=== PATIENT | male | born 1975 | race Caucasian/White ===

== ENCOUNTER → 2021-03-21 10:20 | Outpatient (BNVA) | payer SELFPAY | PROVIDERS: Family Provider Nurse Practitioner; PCP Nurse Practitioner Family; Visit Provider Nurse Practitioner Family | DX: K76.0 Fatty (change of) liver, not elsewhere classified (principal); R14.0 Abdominal distension (gaseous); R00.2 Palpitations; R29.818 Other symptoms and signs involving the nervous system; R51.9 Headache, unspecified | CPT/HCPCS: 80053; 80061; 82105; 83036; 84443; 85610; 85730 ==

== ENCOUNTER 2021-03-30 10:19 | Outpatient (CLI) | payer SELFPAY ==
--- NOTE | 2021-03-30 10:15 | US_ITS ---
WS: [id number] ULTRASOUND ABDOMEN CLINICAL INFORMATION: Distention/tenderness COMPARISON: None. FINDINGS: Liver Size: Normal. Craniocaudal length: 14.8 cm. Echogenicity: Coarse Surface nodularity: None. Mass (size and location): None. Bile ducts Intrahepatic ducts: Normal. Common bile duct diameter: 0.4 cm. Gallbladder Normal. Gallstones: None. Gallbladder sludge: None. Gallbladder wall thickening: None. Pericholecystic fluid: None. Sonographic Velasquez sign: Absent. Pancreas Normal as visualized. Spleen Splenomegaly: Mild Craniocaudal length: 12.6 cm. Right kidney: Normal. Hydronephrosis: None. Size: 11.1 cm x 5.0 cm x 4.6 cm Left kidney: Normal. Hydronephrosis: None. Size: 10.9 cm x 5.1 cm x 5.0 cm. Abdominal aorta and IVC Visualized portions are normal. Ascites: None. US/US abdomen complete* [id number] IMPRESSION: 1. Diffuse fatty infiltration of the liver. 2. Normal gallbladder. No cholelithiasis. Normal common bile duct. 3. No hydronephrosis in either kidney. 4. Mild splenomegaly.
== END 2021-03-30 10:20 | disposition home or self-care (01) ==
LOC: RAD 10:21
PROVIDERS: PCP Nurse Practitioner Family; Visit Provider Nurse Practitioner Family
DX: R14.0 Abdominal distension (gaseous) (principal); R10.819 Abdominal tenderness, unspecified site; K76.0 Fatty (change of) liver, not elsewhere classified; R16.1 Splenomegaly, not elsewhere classified
CPT/HCPCS: 76700

== ENCOUNTER → 2021-05-04 13:36 | Outpatient (BNVA) | payer SELFPAY | PROVIDERS: PCP Nurse Practitioner Family; Visit Provider Nurse Practitioner Family | DX: K76.0 Fatty (change of) liver, not elsewhere classified (principal); Z13.31 Encounter for screening for depression | CPT/HCPCS: 80053 ==

== ENCOUNTER → 2021-09-20 13:50 | Outpatient (BNVA) | payer SELFPAY | PROVIDERS: PCP Nurse Practitioner Family; Visit Provider Nurse Practitioner Family | DX: R74.8 Abnormal levels of other serum enzymes (principal); R73.03 Prediabetes; Z13.1 Encounter for screening for diabetes mellitus; K52.9 Noninfective gastroenteritis and colitis, unspecified; K27.9 Peptic ulcer, site unspecified, unspecified as acute or chronic, without hemorrhage or perforation | CPT/HCPCS: 80053; 83036; 87338; 87506 ==

== ENCOUNTER 2021-09-22 06:51 | Outpatient (CLI) | payer SELFPAY ==
--- NOTE | 2021-09-22 07:45 | CT_ITS ---
WS: [id number] CT ABDOMEN AND PELVIS WITH CONTRAST HISTORY: C43.9 - Malignant melanoma of skin, unspecified TECHNIQUE: Imaging performed of the abdomen and pelvis with IV contrast. Single phase imaging of the abdomen. Coronal and sagittal reformats are submitted. All CT scans at [facility] use at [address] one of these dose optimization techniques: automated exposure control; mA and/or kV adjustment per patient size (includes targeted exams where dose is matched to clinical indication); or iterative re construction. IV CONTRAST: Omnipaque 350; 95 mL IV. Oral contrast: Yes. DLP: 1375.33 mGy.cm COMPARISON: 05/29/2016 Lower thorax: Lung bases are clear. Heart is normal size. Small hiatal hernia. Liver/biliary system: Normal size with no intrahepatic dilatation. Gallbladder: Normal. No gallstones or wall thickening. No pericholecystic fluid. Pancreas: Normal size pancreas and pancreatic duct. No adjacent inflammation. Spleen: Normal size spleen. No mass or infarct. Adrenal glands: Normal. Right kidney: Normal. Left kidney: Normal. Aorta: Normal. Lymphadenopathy: None. Free fluid: None. GI tract: Nondistended stomach. Towards the pylorus and proximal duodenum there is increased circumfe rential soft tissue and small focus of air within the wall. Suspect this may be a small duodenal ulce ration. No obstruction is evident. No small bowel obstruction. Very mild diffuse fecal retention. The appendix is normal. There are a few scattered diverticula. No evidence for acute diverticulitis. Abdominal wall: Fat containing umbilical hernia. There is a tiny 4 mm nodule in the RIGHT abdominal w all subcutaneous fat. This may be an injection site. Very nonspecific. A similar smaller finding note d on the LEFT. Pelvis: No free fluid or adenopathy within the pelvis. Well-distended urinary bladder. Bones: No osteoblastic or osteolytic bone disease. CT/CT abdomen pelvis w con* [id number] IMPRESSION: 1. Mild soft tissue thickening in the region of the pylorus and proximal duode num. Tiny focus of air in the wall of the duodenum. Suspicious for duodenal ulc er. Recommend short-term follow-up. Endoscopy may be necessary. 2. No ascites or mesenteric deposits. 3. No adenopathy.
[2021-09-22] MEDS: iohexol 350 mg/mL 100 mL Btl IV (08:28)
== END 2021-09-22 06:52 | disposition home or self-care (01) ==
PROVIDERS: PCP Nurse Practitioner Family; Visit Provider Nurse Practitioner Family
DX: C43.9 Malignant melanoma of skin, unspecified (principal)
CPT/HCPCS: 74177

== ENCOUNTER 2022-10-31 19:53 | Emergency (ER) | payer MEDICAID, SELFPAY ==
[2022-10-31 20:02] VITALS: BP 151/76; PULSE 49; RESP 18; TEMP 36.9; O2SAT 98; BMI 30.4
--- NOTE | 2022-10-31 20:06 | XRR_ITS ---
PROCEDURE INFORMATION: Exam: XR Chest Exam date and time: 10/31/2022 8:12 PM Age: 46 years old Clinical indication: Pain; Chest pressure; Additional info: Chest pain TECHNIQUE: Imaging protocol: Radiologic exam of the chest. Views: 1 view. COMPARISON: CT abdomen pelvis w con* [id number] 09/22/2021 8:21 AM FINDINGS: Lungs: Unremarkable. No consolidation. Pleural spaces: Unremarkable. No pleural effusion. No pneumothorax. Heart/Mediastinum: Unremarkable. No cardiomegaly. Bones/joints: Unremarkable. XR/XR chest 1V portable [id number] IMPRESSION: No acute findings.
--- NOTE | 2022-10-31 20:08 | ECG_ITS ---
[facility] Test Date: 2022-10-31 Pat Name: Rao Salmon Department: Room: Gender: Male Claim Inspector: : 1975 Requested By: Burt Lamas Order Number: [id number] Courtney MD: Vlad Ann M.D. Measurements Intervals [place] Rate: 51 P: 21 [place]: 172 QRS: -40 QRSD: 103 T: 39 QT: 405 QTc: 376 Interpretive Statements SINUS BRADYCARDIA LEFT AXIS DEVIATION [QRS AXIS < -30] No previous ECG available for comparison Electronically Signed On 11-01-2022 7:59:59 CDT by Vlad Ann M.D. [id number] f
--- NOTE | 2022-10-31 20:08 | ECG_ITS ---
[facility] Test Date: 2022-10-31 Pat Name: Rao Salmon Department: Room: Gender: Male Financial Health Counselor: : 1975 Requested By: Burt Lamas Order Number: [id number] Courtney MD: Vlad Ann M.D. Measurements Intervals [place] Rate: 51 P: 21 [place]: 172 QRS: -40 QRSD: 103 T: 39 QT: 405 QTc: 376 Interpretive Statements SINUS BRADYCARDIA LEFT AXIS DEVIATION [QRS AXIS < -30] No previous ECG available for comparison Electronically Signed On 11-01-2022 7:58:27 CDT by Vlad Ann M.D. [id number] f
[2022-10-31 20:34] LABS: Basophils # 0.1 10^3/uL (0.0-0.1); Basophils % 0.9 %; Eosinophils # 0.1 10^3/uL (0.0-0.8); Hematocrit 43.7 % (42.0-52.0); Hemoglobin 14.5 g/dL (11.7-16.6); Lymphocytes # 1.8 10^3/uL (0.8-4.8); Lymphocytes % 17.7 %; Mean Corpuscular HGB Conc 33.2 g/dL (30.0-36.0); Mean Corpuscular Hemoglobin 29.1 pg (28.0-34.0); Mean Corpuscular Volume 87.6 fl (80-94); Mean Platelet Volume 10.6 fL (7.4-10.4); Monocytes # 0.5 10^3/uL (0.2-0.9); Neutrophils # 7.62 10^3/uL (1.8-7.7); Neutrophils % 75.1 %; Nucleated Red Blood Cells % 0 %; Platelet Count 225 10^3/cmm (130-400); Red Blood Count 4.99 10^6/uL (4.1-5.3); Red Cell Distribution Width 12.2 % (12.1-15.1); White Blood Count 10.2 10^3/uL (4.0-10.0)
--- NOTE | 2022-10-31 20:48 | ED_ITS ---
HPI - Chest Pain General: Chief Complaint: Chest Pain Stated Complaint: CP Time Seen by Provider: 10/31/22 20:06 History of Present Illness: Patient presents to the ER with intermittent chest pain for about a month. Chest pain today started about an hour ago hit his midsternal to his left chest sometimes radiates down his left arm. Patient says he has had a cardiac stress test through the [employer] [facility] system in [place] but he does not know the results of it. Patient also states he has not been referred to route agent in the [employer] system as he has never received a phone call from them back. Looking through the patient's chart he had a Holter monitor done approximately 2021 that did show bradycardia down to the approximately 45 beats a minute as well as tachycardia up to 150 beats a minute. Review of Systems General: Reports: 10 or more systems reviewed and unremarkable except in HPI and below PFSH ED PFSH: Medical History Fatty liver Melanoma Metastatic malignant melanoma Family History Other Diabetes Physical Exam Const: COMMON NORMALS: no acute distress, average body habitus, patient oriented x3, no limitations, healthy appearing, alert and well nourished HENMT: COMMON NORMALS: normocephalic, atraumatic, hearing grossly normal bilaterally, external ears normal, Normal external nose present and moist oral mucous membranes HEAD & SCALP: normocephalic and atraumatic NOSE: Normal external nose present EXTERNAL EAR: Yes external ears normal Neck/C-Spine: COMMON NORMALS: full ROM, no lymphadenopathy, supple, no meningeal signs, no JVD and Thyroid normal THYROID: Thyroid normal Chest: COMMONS NORMALS: normal inspection of the chest and normal palpation of entire chest wall Resp: COMMON NORMALS: normal respiratory effort, No retractions, No use of accessory muscles and clear to auscultation bilaterally AUSCULTATION: clear to auscultation bilaterally Cardio: COMMON NORMALS: no JVD, regular rate (Bradycardia), regular rhythm, S1 normal heart sound present, S2 normal heart sound present, No gallops present (Cardio), No clicks present (Cardio) and No murmurs present (Cardio) RATE: regular rate (Bradycardia) RHYTHM: regular rhythm HEART SOUNDS: S1 normal heart sound present and S2 normal heart sound present GI: COMMON NORMALS: Normal to inspection, nondistended, normoactive bowel sounds present, Soft to palpation and No hepatosplenomegaly present PALPATION: Yes Soft to palpation and Yes No hepatosplenomegaly present Neuro: COMMON NORMALS: patient oriented x3 SENSORIUM/ORIENTATION: Yes alert MENINGEAL SIGNS: Yes no meningeal signs Course Vital Signs: Vital signs: Vital Signs Temperature 98.4 F 10/31/22 20:02 Pulse Rate 52 L 10/31/22 23:00 Respiratory Rate 18 10/31/22 22:00 Blood Pressure 136/83 10/31/22 23:00 Pulse Oximetry 97 10/31/22 23:00 Oxygen Delivery Me thod Room Air 10/31/22 23:00 MDM - Chest Pain Medical Decision Making Patient presents to the ER with atypical chest pain intermittently off and on for the last 1 month. During this time patient had a cardiac stress test that he does not know the results of. Patient was worked up in normal cardiac fashion all of which was essentially benign patient did not have chronic bradycardia with occasional dips down to the high 40s. This was discussed with the patient patient will be referred to cardiology through our system. Patient should follow-up with his PCP in the next week. Differential Diagnosis Unlikely acute massive pulmonary embolism, acute respiratory failure, acute myocardial infarction, cardiac arrest or sudden cardiac Medical Records I reviewed the patient's medical records. Lab Data I reviewed the patient's lab results. 10/31/22 20:24 10/31/22 20:24 Radiology Impressions Chest X-Ray 10/31/22 20:06 IMPRESSION: No acute findings. Laboratory Results WBC 10.2 10^3/uL (4.0-10.0) H 10/31/22 20:24 RBC 4.99 10^6/uL (4.1-5.3) 10/31/22 20:24 Hgb 14.5 g/dL (11.7-16.6) 10/31/22 20:24 Hct 43.7 % (42.0-52.0) 10/31/22 20:24 MCV 87.6 fl (80-94) 10/31/22 20:24 MCH 29.1 pg (28.0-34.0) 10/31/22 20:24 MCHC 33.2 g/dL (30.0-36.0) 10/31/22 20: RDW 12.2 % (12.1-15.1) 10/31/22 20: Plt Count 225 10^3/cmm (130-400) 10/31/22 20:24 MPV 10.6 fL (7.4-10.4) H 10/31/22 20: Neut % (Auto) 75.1 % 10/31/22: Lymph % (Auto) 17.7 % 10/31/22: Blaine % (Auto) 5.0 % 10/31/22: Eos % (Auto) 1.0 % 10/31/22 20: Baso % (Auto) 0.9 % 10/31/22: Neut # (Auto) 7.62 10^3/uL (1.8-7.7) 10/31/22: Lymph # (Auto) 1.8 10^3/uL (0.8-4.8) 10/31/22: Blaine # (Auto) 0.5 10^3/uL (0.2-0.9) 10/31/22 20: Eos # (Auto) 0.1 10^3/uL (0.0-0.8) 10/31/22: Baso # (Auto) 0.1 10^3/uL (0.0-0.1) 10/31/22: Nucleated RBC % (auto) 0 % 10/31/22: Nucleated RBCs # 0.0 /100WBC 10/31/22: PT 13.50 SECONDS (12.1-14.9) 10/31/22 20:24 INR 1.00 (0.8-1.2) 10/31/22 20:24 Sodium 141 mmol/L (136-145) 10/31/22 20:24 Potassium 4.1 mmol/L (3.5-5.1) 10/31/22 20: Chloride 106 mmol/L (98-107) 10/31/22 20:24 Carbon Dioxide 25 mmol/L (22-29) 10/31/22 20: Anion Gap 14.1 (5-19) 10/31/22 20:24 BUN 14 mg/dL (6-20) 10/31/22 20:24 Creatinine 1.1 mg/dL (0.7-1.2) 10/31/22 20:24 GFR Calculation 71.8 mL/min (90-130) L 10/31/22 20:24 Glucose 104 mg/dL (65-115) 10/31/22 20:24 Calculated Osmolality 293 mOsm/kg (285-295) 10/31/22 20:24 Calcium 9.3 mg/dL (8.5-10.5) 10/31/22 20:24 Total Bilirubin 0.9 mg/dL (0.15-1.2) 10/31/22 20:24 AST 22 U/L (0-40) 10/31/22 20:24 ALT 44 U/L (0-41) H 10/31/22 20:24 Alkaline Phosphatase 94 U/L (40-130) 10/31/22 20:24 Troponin T Baseline 8 ng/L (0-15) 10/31/22 20:24 Troponin T 120 Minute 10.55 ng/L (0-15) 10/31/22 22:26 Delta Troponin T 2.55 ABS# (0-10) 10/31/22 22:26 Total Protein 7.1 g/dL (6.6-8.7) 10/31/22 20:24 Albumin 4.3 g/dL (3.5-5.2) 10/31/22 20:24 Globulin 2.8 g/dL (1.3-4.6) 10/31/22 20:24 EKG Data EKG 1: I personally reviewed and interpreted this EKG as follows: EKG interpretation date: 10/31/22 EKG interpretation time: 20:08 Prior EKG tracings: not available for review Interpretation: Ventricular rate of 51 bpm, MN interval 172, QRS duration 103, QTc of 383, sinus bradycardia, left axis deviation, no ST-T wave changes Discharge Plan Discharge Patient Disposition: Home Clinical Impression: Atypical chest pain, Bradycardia Condition: Stable Prescriptions: No Action pantoprazole [Protonix] 40 mg tablet,delayed release (DR/EC) 40 mg PO DAILY Qty: 90 0RF Rx Instructions: 340 B buspirone 15 mg tablet 15 mg PO .HS Qty: 90 3RF trazodone 100 mg tablet 100 mg PO .HS Qty: 90 3RF citalopram 40 mg tablet 40 mg PO DAILY Qty: 90 3RF Discharge Orders: Discharge ED (Routine); Ordered 10/31/22 Ordered By: Burt Lamas Referrals: Sheila Meyers FNP [Primary Care Provider] - 1 week Patient Instructions: Chest Pain (ED), Bradycardia (ED) Activity Restrictions/Additional Instructions: He had been referred to case management. They will refer you to cardiology. If they have not consulted you by Saturday please feel free to give them a call. Coding Level of Care Code ED Tubing Oiler for Saroj Gorman
[2022-10-31 21:00] VITALS: BP 167/93; PULSE 50; RESP 18; O2SAT 98
[2022-10-31 21:00] LABS: Troponin(5th) Baseline 8 ng/L (0-15)
[2022-10-31 21:06] LABS: Alanine Aminotransferase 44 U/L (0-41); Albumin Level 4.3 g/dL (3.5-5.2); Alkaline Phosphatase 94 U/L (40-130); Anion Gap 14.1 (5-19); Aspartate Amino Transferase 22 U/L (0-40); Blood Urea Nitrogen 14 mg/dL (6-20); Calcium 9.3 mg/dL (8.5-10.5); Carbon Dioxide 25 mmol/L (22-29); Chloride 106 mmol/L (98-107); Globulin 2.8 g/dL (1.3-4.6); Glomerular Filtration Rate 71.8 mL/min (90-130); Glucose 104 mg/dL (65-115); Osmolality Calculated 293 mOsm/kg (285-295); Potassium 4.1 mmol/L (3.5-5.1); Sodium 141 mmol/L (136-145); Total Bilirubin 0.9 mg/dL (0.15-1.2); Total Protein 7.1 g/dL (6.6-8.7)
[2022-10-31 22:00] VITALS: BP 148/72; PULSE 52; RESP 18; O2SAT 98
[2022-10-31 22:58] LABS: Troponin 5 2HR 10.55 ng/L (0-15); Troponin 5 2HR Delta 2.55 ABS# (0-10)
[2022-10-31 23:00] VITALS: BP 136/83; PULSE 52; O2SAT 97
[2022-10-31 23:44] VITALS: BP 122/69; PULSE 54
--- NOTE | 2022-11-01 08:38 | DCPLANNER ---
Addendum entered by Amy Mantilla 11/16/22 10:59: Patient did attend this appointment with heart care Addendum entered by Amy Mantilla 11/06/22 11:45: Patient has a follow up appointment scheduled for Sunday, November 13, 2022 at 10:[address] Delacruz at [facility]. Original Note: manager of change had message to schedule a follow up appointment for patient with cardiology. manager of change sent patients information to the front office staff at [facility]. Patients information will be printed and reviewed. Clinic will call patient with appointment information.
== END 2022-10-31 23:46 | disposition home or self-care (01) ==
PROVIDERS: Emergency Provider Emergency Medicine; PCP Nurse Practitioner Family
DX: R07.89 Other chest pain (principal); R00.1 Bradycardia, unspecified
CPT/HCPCS: 36415; 71045; 80053; 84484; 85025; 85610; 93005; 99285

== ENCOUNTER → 2022-11-01 11:06 | Outpatient (BNVA) | payer MEDICAID, SELFPAY | PROVIDERS: PCP Nurse Practitioner Family; Visit Provider Family Medicine | DX: F41.1 Generalized anxiety disorder (principal); F41.0 Panic disorder [episodic paroxysmal anxiety]; W57.XXXA Bitten or stung by nonvenomous insect and other nonvenomous arthropods, initial encounter; R00.1 Bradycardia, unspecified; R07.89 Other chest pain; R07.9 Chest pain, unspecified; Z12.5 Encounter for screening for malignant neoplasm of prostate | CPT/HCPCS: 80053; 80061; 84443; 85025; 86003; 86008; 86618; 86666; 86677; 86757; G0103 ==

== ENCOUNTER 2022-12-03 14:33 | Outpatient (CLI) | payer MEDICAID, SELFPAY ==
--- NOTE | 2022-12-03 15:15 | USCV_ITS ---
Rao Salmon Age: 47 Gender: M : 1975 Exam Date: 12/03/2022 14:46 Ordering Phys: Andrea Delacruz MD ([email or web address]) Technologist: Yuliana Calvert Exam Location: [facility] Indication: CP, palpitations BP: 112 / 70 HR: 73 Rhythm: Sinus Technical Quality: Good MEASUREMENTS (Male / Female) Normal Values 2D ECHO LV Diastolic Diameter PLAX 4.8 cm 4.2 - 5.9 / 3.9 - 5.3 cm LV Systolic Diameter PLAX 2.8 cm IVS Diastolic Thickness 1.3 cm 0.6 - 1.0 / 0.6 - 0.9 cm IVS Systolic Thickness 1.8 cm LVPW Diastolic Thickness 0.9 cm 0.6 - 1.0 / 0.6 - 0.9 cm LVPW Systolic Thickness 1.9 cm LVOT Diameter 2.0 cm LV Ejection Fraction 2D Teich 73.1 % LV Ejection Fraction MOD 2C 66.2 % LV Ejection Fraction 2C AL 67.3 % LA Diameter 3.0 cm LA Width 3.2 cm LA Height 4.1 cm RA Width 3.3 cm RA Height 5.1 cm Aorta at Sinotubular Diameter 2.9 cm IVC Diameter 1.4 cm M-MODE Aortic Annulus Diameter 2.7 cm LA Ao Ratio MM 1.2 MV E Point Septal Separation 0.3 cm DOPPLER AV Peak Velocity 154.0 cm/s LVOT Peak Velocity 129.0 cm/s AV Area Cont Eq vti 2.5 cm squared AV Area Cont Eq pk 2.7 cm squared MV Area PHT 3.5 cm squared Mitral E to A Ratio 1.0 MV E' Velocity 42.5 cm/s Mitral E to MV E' Ratio 8.0 Mitral E to LV E' Lateral Ratio 6.6 Mitral E to LV E' Septal Ratio 10.4 TR Peak Velocity 196.8 cm/s TR Peak Gradient 15.5 mmHg Right Atrial Pressure 5.0 mmHg Pulmonary Artery Systolic Pressu 20.5 mmHg PV Peak Velocity 109.0 cm/s RV Acceleration Time 0.1 s RV Ejection Time 0.3 s RV AcT/ET 0.5 FINDINGS Left Ventricle Normal left ventricular size and systolic function, EF 67 %. Mild left ventricular hypertrophy. No regional wall motion abnormalities. Right Ventricle The right ventricle is normal in size and function. Right Atrium The right atrium is normal in size. Left Atrium The left atrium is normal in size. Mitral Valve Thickened mitral valve. Mild mitral valve regurgitation. Aortic Valve No gross abnormalities noted Tricuspid Valve Mild tricuspid valve regurgitation. Pulmonic Valve No gross abnormalities noted Pericardium Normal pericardium without effusion. Aorta Normal aortic annulus size. IVC Normal inferior vena cava. CONCLUSIONS Normal left ventricular size and systolic function, EF 67 %. Mild left ventricular hypertrophy. No regional wall motion abnormalities. Thickened mitral valve. Mild mitral valve regurgitation. Mild tricuspid valve regurgitation. There is no pericardial effusion. There are no intracardiac masses. No similar previous studies are available for comparison Dr Andrea Delacruz MD FACC (Electronically Signed) Final Date: 03 December 2022 20:20 S
== END 2022-12-03 14:34 | disposition home or self-care (01) ==
PROVIDERS: PCP Family Medicine; Visit Provider Internal Medicine Cardiovascular Disease
DX: R00.0 Tachycardia, unspecified (principal); R06.09 Other forms of dyspnea; R07.9 Chest pain, unspecified; I34.0 Nonrheumatic mitral (valve) insufficiency; I07.1 Rheumatic tricuspid insufficiency
CPT/HCPCS: 93306

== ENCOUNTER → 2023-03-25 09:35 | Outpatient (BNVA) | payer MEDICAID, SELFPAY | PROVIDERS: PCP Family Medicine; Visit Provider Family Medicine | DX: R74.8 Abnormal levels of other serum enzymes (principal); K27.9 Peptic ulcer, site unspecified, unspecified as acute or chronic, without hemorrhage or perforation; K26.9 Duodenal ulcer, unspecified as acute or chronic, without hemorrhage or perforation; K92.1 Melena | CPT/HCPCS: 80053; 82150; 82247; 82248; 82977; 83690; 85025 ==

== ENCOUNTER 2023-04-05 12:56 | Outpatient (CLI) | payer MEDICAID, SELFPAY ==
--- NOTE | 2023-04-05 13:45 | US_ITS ---
WS: [id number] Complete ABDOMINAL ULTRASOUND HISTORY: Abdominal pain, elevated pancreatic enzymes. COMPARISON: 03/30/2021 Liver: 14.8 cm in length. Normal size liver and echogenicity. No bile duct dilatation or mass. Portal Vein: Normal hepatopetal flow with monophasic waveform. Gallbladder: Normally distended gallbladder with no stones or wall thickening. CBD: 0.2 cm Pancreas: Only a small portion of the body of the pancreas is seen. Otherwise obscured by bowel gas. Right kidney: 10.3 cm x 4.8 x 4.5 cm. Cortex: 1.2 cm. Normal size and echogenicity. No hydronephrosis or mass. Left kidney: 10.8 cm x 3.5 cm x 4.9 cm. Cortex: 1.3 cm. Normal size and echogenicity. No hydronephrosis or mass. Spleen: 12.5 cm in length. Normal. Aorta and IVC: Unremarkable abdominal aorta and IVC. Impression: 1. Normal gallbladder. 2. Normal liver. 3. Pancreas poorly visualized due to bowel gas.
== END 2023-04-05 12:57 | disposition home or self-care (01) ==
LOC: RAD 12:56
PROVIDERS: PCP Family Medicine; Visit Provider Family Medicine
DX: R10.84 Generalized abdominal pain (principal); R74.8 Abnormal levels of other serum enzymes; K92.1 Melena; Z80.0 Family history of malignant neoplasm of digestive organs
CPT/HCPCS: 76700

== ENCOUNTER 2023-04-21 09:32 | Emergency (ER) | payer MEDICAID, SELFPAY ==
[2023-04-21 09:38] VITALS: BP 139/77; PULSE 59; RESP 16; TEMP 36.4; O2SAT 99; BMI 27.1
[2023-04-21 09:47] LABS: Basophils # 0.1 10^3/uL (0.0-0.1); Basophils % 1.1 %; Eosinophils # 0.4 10^3/uL (0.0-0.8); Eosinophils % 7.1 %; Hematocrit 44.4 % (37-53); Mean Corpuscular HGB Conc 33.8 g/dL (30-55); Mean Corpuscular Hemoglobin 29.4 pg (27-33); Mean Corpuscular Volume 87.1 fl (82-101); Mean Platelet Volume 10.2 fL (7.4-10.4); Monocytes # 0.4 10^3/uL (0.2-0.9); Monocytes % 8.2 %; Neutrophils # 2.32 10^3/uL (1.8-7.7); Neutrophils % 44.4 %; Nucleated Red Blood Cells % 0 %; Platelet Count 232 10^3/cmm (157-399); Red Cell Distribution Width 12.2 % (12.1-15.1); White Blood Count 5.23 10^3/uL (3.29-11.43)
[2023-04-21 10:05] LABS: Alanine Aminotransferase 50 U/L (0-41); Albumin Level 4.3 g/dL (3.5-5.2); Alkaline Phosphatase 85 U/L (40-130); Anion Gap 13.9 (5-19); Aspartate Amino Transferase 28 U/L (0-40); Blood Urea Nitrogen 14 mg/dL (6-20); Calcium 9.6 mg/dL (8.5-10.5); Carbon Dioxide 25 mmol/L (22-29); Chloride 107 mmol/L (98-107); Creatinine Clr Calc Pharmacy 96.2366; Globulin 2.9 g/dL (1.3-4.6); Glomerular Filtration Rate 71.4 mL/min (90-130); Glucose 107 mg/dL (65-115); Lipase 89 U/L (13-60); Osmolality Calculated 293 mOsm/kg (285-295); Potassium 4.9 mmol/L (3.5-5.1); Sodium 141 mmol/L (136-145); Total Bilirubin 1.2 mg/dL (0.15-1.2); Total Protein 7.2 g/dL (6.6-8.7)
--- NOTE | 2023-04-21 10:35 | CTR_ITS ---
PROCEDURE INFORMATION: Exam: CT Abdomen And Pelvis With Contrast Exam date and time: 04/21/2023 10:55 AM Age: 47 years old Clinical indication: Abdominal pain; Epigastric; Additional info: Epigastric pain TECHNIQUE: Imaging protocol: Computed tomography of the abdomen and pelvis with contrast. Radiation optimization: All CT scans at this facility use at least one of these dose optimization techniques: automated exposure control; mA and/or kV adjustment per patient size (includes targeted exams where dose is matched to clinical indication); or iterative reconstruction. Contrast material: OMNI 350; Contrast volume: 100 ml; Contrast route: INTRAVENOUS (IV); COMPARISON: CT abdomen pelvis w con* [id number] 09/22/2021 8:21 AM RADIATION DOSE METRICS: Total DLP (mGy-cm): 791.94 FINDINGS: Lungs: Lung bases are clear. No pleural effusion. Liver: Normal. No mass. Gallbladder and bile ducts: Normal. No calcified stones. No ductal dilation. Pancreas: Normal. No ductal dilation. Spleen: Normal. No splenomegaly. Adrenal glands: Normal. No mass. Kidneys and ureters: Normal. No hydronephrosis. Stomach and bowel: Unremarkable. No obstruction. No mucosal thickening. Appendix: No evidence of appendicitis. Intraperitoneal space: Unremarkable. No free air. No significant fluid collection. Vasculature: Unremarkable. No abdominal aortic aneurysm. Lymph nodes: Unremarkable. No enlarged lymph nodes. Urinary bladder: Unremarkable as visualized. Reproductive: Unremarkable as visualized. Bones/joints: Unremarkable. No acute fracture. Soft tissues: There is a small umbilical hernia containing mesenteric fat. CT/CT abdomen pelvis w con* [id number] IMPRESSION: I see no acute abnormality.
[2023-04-21 10:55] LABS: Alcohol Level < 10 mg/dL (0-10)
[2023-04-21] MEDS: iohexol 350 mg/mL 500 mL Btl (per mL) IV (10:58)
--- NOTE | 2023-04-21 11:22 | USR_ITS ---
PROCEDURE INFORMATION: Exam: US Abdomen, Limited; Right Upper Quadrant Exam date and time: 04/21/2023 12:05 PM Age: 47 years old Clinical indication: Abdominal pain; Epigastric; Additional info: Ruq abd pain TECHNIQUE: Imaging protocol: Real time ultrasound of the abdomen with image documentation. Limited exam focused on the right upper quadrant. COMPARISON: US abdomen complete* [id number] 04/05/2023 1:51 PM FINDINGS: Liver: Normal. No masses. Gallbladder: Normal. No gallstones. There is no gallbladder wall thickening. Biliary ducts: Normal. No stones. No dilation. Pancreas: Visualized pancreas is unremarkable. Right kidney: Normal. No mass. No hydronephrosis. US/US gall bladder [id number] IMPRESSION: No acute findings.
--- NOTE | 2023-04-21 11:23 | W.ED.ABDPA2 ---
HPI - Abdominal Pain General: Chief Complaint: Abdominal Pain Stated Complaint: abd pain Time Seen by Provider: 04/21/23 10:30 History of Present Illness: 47-year-old male presents emergency department complaints of right upper quadrant and epigastric pain that is intermittent. Patient states that he was seen by Dr. Wade and is scheduled for an endoscopy and is currently taking pantoprazole. He states he was advised some number of years ago that he might have had a gastric ulcer. He states he did receive an ultrasound several weeks ago for evaluation and was also advised that he had elevated pancreatic and liver enzymes at that time. He does endorse nausea. He states his current right upper quadrant and epigastric pain is a 3 out of 10 intermittent and a gnawing type pain. He denies hematic emesis or hematochezia. He denies fevers chills or night sweats. Associated Symptoms: Reports nausea Review of Systems GI: Reports: abdominal pain and nausea [facility] ED PFSH: Medical History (Updated 04/21/23 @ 12:00 by Otis Lakhani MD) Family history of pancreatic cancer Metastatic malignant melanoma Melanoma Fatty liver Family History Sister Cancer pancreatic cancer Other Diabetes Denies family history of CAD (coronary artery disease) Anesthesia complication Bleeding disorder Social History Smoking and tobacco/nicotine status: current every day tobacco/nicotine user smokeless tobacco Second hand smoke exposure: No Alcohol intake: never Substance/Drug Use: never Adopted: No Caregiver/support person: No Lives independently: Yes service: No Current occupational status: employed Current occupational exposures/hazards: No Do you think of yourself as: Straight/Heterosexual Current gender identity: Male Physical Exam Narrative: EXAM NARRATIVE: Constitutional: the patient appears well nourished and with normal development. Vital signs reviewed as documented. HENMT: Normocephalic, atraumatic. External ears normal appearance without drainage. Nose without drainage, normal appearance. Mucus membranes moist. Neck is supple, No jugular venous distension, trachea is midline, no appreciable carotid bruits. No lymphadenopathy. No meningeal signs. Flexion, extension and lateral rotation is without pain. Eyes: Pupils are equal, round, reactive to light and accommodation. No scleral icterus. Extra-ocular movement are intact. Thorax is symmetrical and with equal rise and fall with respirations. Resp: Lungs are clear to auscultation. No wheezes, rales, crackles or ronchi at present. Cardio: Regular rate and rhythm. Positive S1, S2. No appreciable murmurs, rubs or gallops. GI: Abdominal exam reveals normal bowel sounds to all quadrants. No organomegaly. No obvious palpable masses noted. No hepatomegally appreciated. Soft, slightly tender to palpation to the epigastric region.. Extremity: Extremities are non-edematous and both femoral and pedal pulses are 2+ and equal bilaterally. Moves all extremities well, sensation in all extremities. Neuro: Alert and oriented x4, person, place, time and situation. Cranial nerves II through XII are grossly intact, there is no focal neurological deficits that I can appreciate at present. Motor strength in the upper and lower extremities are equal and bilateral 5/5. Psych: Cooperative, calm, normal thought process, appropriate judgment. Skin: No lesions, rashes. No gross abnormalities noted. Back: Symmetrical, no obvious deformity, No CVA tenderness Course Vital Signs: Vital signs: Vital Signs Temperature 97.5 F L 04/21/23 09:38 Pulse Rate 59 L 04/21/23 09:38 Respiratory Rate 16 04/21/23 09:38 Blood Pressure 139/77 04/21/23 09:38 Pulse Oximetry 99 04/21/23 09:38 Oxygen Delivery Me thod Room Air 04/21/23 09:38 MDM - Abdominal Pain Medical Decision Making I reviewed the patient's previous medical records it does appear he recently had an ultrasound he states that his pain is now worse. He states that he stopped drinking approximately 2 years ago he has recently seen Dr. Wade to discuss and schedule a upper endoscopy and that is pending. He states he has continued to have intermittent gnawing epigastric pain and states he is concerned as previously his liver enzymes and pancreatic enzymes were elevated. He states he does feel intermittently nauseated I will obtain laboratory evaluation to include a CBC, CMP, lipase I will obtain a CT scan of his abdomen pelvis and given his tenderness to palpation of the right upper quadrant I will obtain repeat ultrasound. Medical Records I reviewed the patient's medical records. Lab Data I reviewed the patient's lab results. 04/21/23 09:42 04/21/23 09:42 Labs/Radiology: Radiology Impressions Abdomen/Pelvis CT 04/21/23 10:35 IMPRESSION: I see no acute abnormality. Gallbladder Ultrasound 04/21/23 11:22 IMPRESSION: No acute findings. Laboratory Results WBC 5.23 10^3/uL (3.29-11.43) 04/21/23 09:42 RBC 5.10 10^6/uL (3.85-5.65) 04/21/23 09:42 Hgb 15.00 g/dL (11.27-16.99) 04/21/23 09:42 Hct 44.4 % (37-53) 04/21/23 09:42 MCV 87.1 fl (82-101) 04/21/23 09:42 MCH 29.4 pg (27-33) 04/21/23 09:42 MCHC 33.8 g/dL (30-55) 04/21/23 09:42 RDW 12.2 % (12.1-15.1) 04/21/23 09:42 Plt Count 232 10^3/cmm (157-399) 04/21/23 09:42 MPV 10.2 fL (7.4-10.4) 04/21/23 09:42 Neut % (Auto) 44.4 % 04/21/23 09:42 Lymph % (Auto) 39.0 % 04/21/23 09:42 [place] % (Auto) 8.2 % 04/21/23 09:42 Eos % (Auto) 7.1 % 04/21/23 09:42 Baso % (Auto) 1.1 % 04/21/23 09:42 Neut # (Auto) 2.32 10^3/uL (1.8-7.7) 04/21/23 09:42 Lymph # (Auto) 2.0 10^3/uL (0.8-4.8) 04/21/23 09:42 [place] # (Auto) 0.4 10^3/uL (0.2-0.9) 04/21/23 09:42 Eos # (Auto) 0.4 10^3/uL (0.0-0.8) 04/21/23 09:42 Baso # (Auto) 0.1 10^3/uL (0.0-0.1) 04/21/23 09:42 Nucleated RBC % (auto) 0 % 04/21/23 09:42 Nucleated RBCs # 0.0 /100WBC 04/21/23 09:42 Sodium 141 mmol/L (136-145) 04/21/23 09:42 Potassium 4.9 mmol/L (3.5-5.1) 04/21/23 09:42 Chloride 107 mmol/L (98-107) 04/21/23 09:42 Carbon Dioxide 25 mmol/L (22-29) 04/21/23 09:42 Anion Gap 13.9 (5-19) 04/21/23 09:42 BUN 14 mg/dL (6-20) 04/21/23 09:42 Creatinine 1.1 mg/dL (0.7-1.2) 04/21/23 09:42 GFR Calculation 71.4 mL/min (90-130) L 04/21/23 09:42 Glucose 107 mg/dL (65-115) 04/21/23 09:42 Calculated Osmolality 293 mOsm/kg (285-295) 04/21/23 09:42 Calcium 9.6 mg/dL (8.5-10.5) 04/21/23 09:42 Total Bilirubin 1.2 mg/dL (0.15-1.2) 04/21/23 09:42 AST 28 U/L (0-40) 04/21/23 09:42 ALT 50 U/L (0-41) H 04/21/23 09:42 Alkaline Phosphatase 85 U/L (40-130) 04/21/23 09:42 Total Protein 7.2 g/dL (6.6-8.7) 04/21/23 09:42 Albumin 4.3 g/dL (3.5-5.2) 04/21/23 09:42 Globulin 2.9 g/dL (1.3-4.6) 04/21/23 09:42 Lipase 89 U/L (13-60) H 04/21/23 09:42 Ethyl Alcohol < 10 mg/dL (0-10) 04/21/23 09:42 All radiology interpretation(s) finalized by discharge Discharge Plan Discharge Patient Disposition: Home Clinical Impression: Abdominal pain, epigastric, Elevated alanine aminotransferase (ALT) level Gastritis Qualifiers: Gastritis type: unspecified gastritis Chronicity: unspecified Gastritis bleeding: without bleeding Qualified Code(s): K29.70 - Gastritis, unspecified, without bleeding Condition: Stable Prescriptions: No Action nitroglycerin 0.3 mg tablet, sublingual 0.3 mg sublingual Q5M PRN (Reason: chest pain) Qty: 20 1RF Rx Instructions: do not exceed 3 doses per episode pantoprazole [Protonix] 40 mg tablet,delayed release (DR/EC) 40 mg PO BID 42 Days Qty: 84 0RF Discharge Orders: Discharge ED (Routine); Ordered 04/21/23 Ordered By: Otis Lakhani Referrals: Dale Tony DO [Primary Care Provider] - Discharge Diet: Low Fat Discharge Activity: Resume usual activity Patient Instructions: Abdominal Pain (ED), Opioid Safety, Pain Management Activity Restrictions/Additional Instructions: Activity Restrictions/Additional Instructions: Thank you for choosing [facility] for your healthcare needs today. Please realize that you were seen in the Emergency Department and that we are providing you with an emergency medical screening exam and this may not be a complete and all inclusive of all the testing and or medical work-up that you may need to determine your ailment or severity of your illness. It is very important that you follow-up as instructed with your Primary care provider or Specialist for additional evaluation and to discuss your medical treatment plan. Continue to take the pantoprazole that was prescribed by Dr. Wade as directed and follow-up with your primary care provider to discuss the need for additional evaluation. Coding Level of Care Code ED Formula Weigher for Saroj Gorman
== END 2023-04-21 13:35 | disposition home or self-care (01) ==
PROVIDERS: Emergency Medicine; Emergency Provider Internal Medicine; PCP Family Medicine
DX: K29.70 Gastritis, unspecified, without bleeding (principal); R74.01 Elevation of levels of liver transaminase levels; R10.13 Epigastric pain; F17.220 Nicotine dependence, chewing tobacco, uncomplicated
CPT/HCPCS: 36415; 74177; 76705; 80053; 80307; 83690; 85025; 99285; Q9967

== ENCOUNTER 2023-05-08 09:13 | Day surgery (SDC) | payer MEDICAID, SELFPAY ==
--- NOTE | 2023-05-08 09:47 | ANES.PREANE2 ---
Pre-Anesthetic Assessment Height/Weight: Height 1.83 m Weight 90.718 kg Operation Date: 05/08/23 10:30 Proposed Procedures p [id number] egd [id number] colonoscopy G0121 screen colon a risk K21.9, Z80.0 f(Not Applicable) - Jaya Wade DO s Colonoscopy(Not Applicable) - Jaya Wade DO Was Beta Gavin taken within 24 hours: N/A Was Clonidine taken within 24 hours: N/A Last Intake: 22:00 Social Tobacco chews Exam alert, oriented x 3, clear to auscultation bilaterally and regular rate & rhythm Airway Submandibular: within normal limits Cervical ROM: within normal limits Mallampati: Class II History/ROS No significant history except as noted and No significant complaints Pulmonary None reported CV/HEM None reported None reported Hepatic None reported GI None reported Metabolic None reported Musc/skel None reported Neuropsych None reported Anesthetic Plan ASA status: 2 Anesthesia: MAC Risk of > 500 ml blood loss (7ml/kg in children): Yes, adequate IV access and fluids planned Medications/Allergies Home Medications Medication Instructions Recorded Confirmed Last Taken Type nitroglycerin 0.3 mg sublingual 0.3 mg sublingual Q5M PRN chest 03/14/23 05/06/23 Unknown Rx tablet pain #20 tabs pantoprazole 40 mg tablet,delayed 40 mg PO BID 6 weeks #84 tabs 04/09/23 05/06/23 05/06/23 Rx release (Protonix) Allergies Allergy/AdvReac Type Severity Reaction Status Date / Time No Known Allergies Allergy Verified 04/21/23 09:38 [facility] Anesthesia Medical History (Updated 04/29/23 @ 00:01 by JUANIS Aldana) Family history of pancreatic cancer Metastatic malignant melanoma Melanoma Fatty liver Family History Sister Cancer pancreatic cancer Other Diabetes Denies family history of CAD (coronary artery disease) Anesthesia complication Bleeding disorder Social History Smoking and tobacco/nicotine status: current every day tobacco/nicotine user smokeless tobacco Second hand smoke exposure: No Alcohol intake: never Substance/Drug Use: never Adopted: No Caregiver/support person: No Lives independently: Yes service: No Current occupational status: employed Current occupational exposures/hazards: No Do you think of yourself as: Straight/Heterosexual Current gender identity: Male Data Anesthesia Cardiac Studies: Echocardiogram 12/03/22 Holter Monitor 11/14/22
[2023-05-08 09:50] VITALS: BP 130/92; PULSE 69; RESP 18; TEMP 36.8; O2SAT 97
[2023-05-08] MEDS: sodium chloride 0.9% 1,000 ML 30 ML IV (09:55)
--- NOTE | 2023-05-08 10:33 | W.PM.OPSUD ---
Surgery/Procedure H&P Update DATE OF PROCEDURE: May 08, 2023 DATE H&P PERFORMED: 04/09/23 H&P UPDATE INFORMATION: I have reviewed H&P completed within last 30 days, I have examined patient prior to procedure and No changes to prior documentation PLANNED PROCEDURE: Operation Date: 05/08/23 10:30 Proposed Procedures p [id number] egd [id number] colonoscopy G0121 screen colon a risk K21.9, Z80.0 f(Not Applicable) - DO daja Hickman Colonoscopy(Not Applicable) - Jaya Wade DO
[2023-05-08 10:58] VITALS: BP 116/69; PULSE 67; RESP 12; TEMP 36.1; O2SAT 94
[2023-05-08 11:03] VITALS: BP 119/74; PULSE 64; RESP 18; O2SAT 92
[2023-05-08 11:13] VITALS: BP 115/65; PULSE 70; RESP 18; O2SAT 98
--- NOTE | 2023-05-08 11:20 | ANE.PACU2 ---
Inpatient post-anesthesia follow up: Airway intact: Yes Vital signs: Temperature 97.0 F Pulse Rate 70 Respiratory Rate 18 Blood Pressure 115/65 Pulse Oximetry 98 Oxygen Delivery Me thod Room Air Oxygen Flow Rate Fraction of Inspir ed Oxygen Hydration adequate: Yes Nausea and vomiting: No Pain level: 1 Mental status: Baseline
== END 2023-05-08 11:23 | disposition home or self-care (01) ==
PROVIDERS: PCP Family Medicine; Visit Provider Surgery
PROC: 0DJ08ZZ Inspection of Upper Intestinal Tract, Via Natural or Artificial Opening Endoscopic (ICD-10-PCS; CPT 43235; principal; 2023-05-08 10:30)
PROC: 0DJD8ZZ Inspection of Lower Intestinal Tract, Via Natural or Artificial Opening Endoscopic (ICD-10-PCS; CPT 45378; 2023-05-08 10:30)
DX: Z12.11 Encounter for screening for malignant neoplasm of colon (principal); K21.9 Gastro-esophageal reflux disease without esophagitis; Z80.0 Family history of malignant neoplasm of digestive organs; F17.220 Nicotine dependence, chewing tobacco, uncomplicated
CPT/HCPCS: 43239; 88305; G0121; J1100; J2704; J7030

== ENCOUNTER 2023-05-22 07:40 | Outpatient (CLI) | payer MEDICAID, SELFPAY ==
--- NOTE | 2023-05-22 08:00 | NM_ITS ---
WS: [id number] NUCLEAR MEDICINE HIDA SCAN WITH GALLBLADDER EJECTION FRACTION HISTORY: abdominal pain COMPARISON: Gallbladder ultrasound 04/21/2023 TECHNIQUE: The patient was intravenously injected with 8.2 mCi of TC99m Mebrofenin. Immediate imaging over the right upper quadrant was followed by 5 minute image and additional images for a total of 60 minutes. Normal uptake of radiotracer throughout the liver. Activity identified in the gallbladder at 15 minutes and well distended by 60 minutes. Activity in the proximal small bowel was seen by 15 minutes. Incomplete washout of the radiotracer fr om the liver at 60 minutes. The patient then drank 8 ounces of Ensure Plus. Ejection fraction at 60 minutes cannot be defined. Th ere is continued excretion of radiotracer from the liver into the gallbladder with the EF increasing and no gallbladder ejection fraction after the fatty meal. Post fatty meal symptoms: None. IMPRESSION: 1. No common bile duct or cystic duct obstruction. 2. There is continued filling of the gallbladder after 60 minutes and the gallbladder does not contr act. 3. There is continued radiotracer throughout the liver at 60 minutes. This can be seen with patient' s hepatocellular dysfunction such as hepatitis.
== END 2023-05-22 07:41 | disposition home or self-care (01) ==
LOC: RAD 07:40
PROVIDERS: PCP Family Medicine; Visit Provider Surgery
DX: R10.9 Unspecified abdominal pain (principal)
CPT/HCPCS: 78227; A9537

== ENCOUNTER 2023-06-11 08:36 | Day surgery (SDC) | payer MEDICAID, SELFPAY ==
[2023-06-11] VITALS (13 sets, daily range): BP systolic 105–139; BP diastolic 69–85; PULSE 51–70; RESP 11–18; TEMP 36.1–36.7; O2SAT 94–98; BMI 27.1
--- NOTE | 2023-06-11 09:01 | W.PM.OPSUD ---
Surgery/Procedure H&P Update DATE OF PROCEDURE: June 11, 2023 DATE H&P PERFORMED: 05/24/23 H&P UPDATE INFORMATION: I have reviewed H&P completed within last 30 days, I have examined patient prior to procedure and No changes to prior documentation PLANNED PROCEDURE: Operation Date: 06/11/23 10:15 Proposed Procedures p 50252 lap joes armando R10.13, K52.9(Not Applicable) - Jaya Wade, DO
[2023-06-11] MEDS: sodium chloride 0.9% 1,000 ML 30 ML IV (09:09)
--- NOTE | 2023-06-11 09:45 | ANES.PREANE2 ---
Pre-Anesthetic Assessment Height/Weight: Height 1.83 m Weight 90.718 kg Temp Pulse Resp BP Pulse Ox O2 Del Method 98.1 F 57 L 16 133/81 98 Room Air 06/11/23 08:59 06/11/23 08:59 06/11/23 08:59 06/11/23 08:59 06/11/23 08:59 06/11/23 08:59 Operation Date: 06/11/23 10:15 Proposed Procedures p 52459 lap jose armando R10.13, K52.9(Not Applicable) - Jaya Wade DO Familial anesthetic complications: None Was Beta Gavin taken within 24 hours: N/A Was Clonidine taken within 24 hours: N/A Last intake: Intake Last Liquid Date 06/10/23 Last Liquid Time 19:00 Last Solid Date 06/10/23 Last Solid Time 19:00 Social No alcohol and No tobacco Exam alert, oriented x 3, clear to auscultation bilaterally and regular rate & rhythm Airway Mallampati: Class III Dentition: chipped and full CV/HEM Stable Angina (atypical) and Hypertension Hepatic fatty liver GI Gastroesophageal Reflux Disease Anesthetic Plan ASA status: 3 Anesthesia: General Risk of > 500 ml blood loss (7ml/kg in children): No Medications/Allergies Home Medications Medication Instructions Recorded Confirmed Last Taken Type nitroglycerin 0.3 mg sublingual 0.3 mg sublingual Q5M PRN chest 03/14/23 06/10/23 3 Months Ago Rx tablet pain #20 tabs ~03/12/23 Allergies Allergy/AdvReac Type Severity Reaction Status Date / Time No Known Allergies Allergy Verified 05/24/23 08:46 Current Medications Generic Name Dose Route Start Last Admin Trade Name Freq PRN Reason Stop Dose Admin Sodium Chloride 1,000 mls @ 30 mls/hr 06/11/23 08:45 06/11/23 09:09 Sodium Chloride 0.9% IV 06/12/23 08:44 30 mls/hr .Q24H SHEYLA Administration PFSH Anesthesia Medical History (Updated 05/24/23 @ 09:15 by Jaya Wade DO) Family history of pancreatic cancer Metastatic malignant melanoma Melanoma Fatty liver Surgical History (Updated 05/24/23 @ 09:15 by Jaya Wade DO) History of colonoscopy 05/08 History of esophagogastroduodenoscopy (EGD) 05/08 Family History Sister Cancer pancreatic cancer Other Diabetes Denies family history of CAD (coronary artery disease) Anesthesia complication Bleeding disorder Social History Smoking and tobacco/nicotine status: current every day tobacco/nicotine user smokeless tobacco Second hand smoke exposure: No Alcohol intake: never Substance/Drug Use: never Adopted: No Caregiver/support person: No Lives independently: Yes service: No Current occupational status: employed Current occupational exposures/hazards: No Do you think of yourself as: Straight/Heterosexual Current gender identity: Male Data Anesthesia Cardiac Studies: Echocardiogram 12/03/22 Holter Monitor 11/14/22
[2023-06-11] MEDS: ceFAZolin 2,000 MG in sodium chloride 0.9% (plus) 50 ML 100 MG IV (09:48)
[2023-06-11] MEDS: lidocaine-epi 2% PF 1:200,000 20 mL SDV (10:06)
--- NOTE | 2023-06-11 10:23 | P.OP_ITS ---
Operative Report Date of procedure: June 11, 2023 Surgeon: Jaya Wade DO Brief History: Very pleasant 47-year-old gentleman who presents my office with abdominal pain. He was diagnosed with biliary dyskinesia. Laparoscopic cholecystectomy is indicated. The risk and benefits were explained and documented. Procedure: Preoperative diagnosis: Biliary dyskinesia Postoperative diagnosis: Same Procedure performed: Laparoscopic cholecystectomy Surgeon: Dr. Jaya Wade DO Estimated blood loss: 5 mL Specimens: Gallbladder to pathology Complications: None apparent Description of procedure: Patient was wheeled into the operative room and placed on the OR table in a supine position. Abdomen was inspected prepped and draped in usual sterile fashion. Time-out was performed and all present were in agreement. A 15 blade scalp was used to make a stab incision in the left upper quadrant and intra- abdominal insufflation was achieved using a Veress needle. After localizing the tissue incisions were made and a 5 millimeter trocar was placed into the umbilicus as well as 2 in the right upper quadrant. A 12 millimeter trocar was placed in the epigastrium. Gallbladder was grasped and elevated. The triangle of Calot was carefully dissected using blunt dissection and electrocautery until the triangle of Calot clearly identified. The cystic duct was clipped proxeyal white and double clipped distally. The duct was then ligated proximally. The cystic artery was doubly clipped and ligated. The gallbladder was then removed from the liver bed using electrocautery. The gallbladder was removed from the abdomen using an Endo-Catch bag through the epigastric incision. The liver bed was inspected and no bleeding was seen. The abdomen was irrigated and suctioned. All ports removed. Skin was washed and dried. Incisions were closed with 4-0 Monocryl in a subcuticular interrupted fashion. Skin glue was applied. Patient tolerated the procedure well.
--- NOTE | 2023-06-11 10:45 | ECG_ITS ---
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 Measurements Intervals [place] Rate: 59 P: 21 [place]: 155 QRS: -37 QRSD: 100 T: 52 QT: 402 QTc: 400 Interpretive Statements SINUS BRADYCARDIA INDETERMINATE AXIS Compared to ECG 10/31/2022 20:08:15 Indeterminate axis now present Left-axis deviation no longer present Electronically Signed On 06-12-2023 23:43:51 CDT by Andrea Delacruz M.D. [email or web address]
[2023-06-11] MEDS: fentaNYL 50 mcg/mL INJ 2mL IVP ×2 (10:54→11:03)
[2023-06-11] MEDS: HYDROcodone-acetaminophen 7.5-325 mg Tablet 1 TAB PO (11:33)
--- NOTE | 2023-06-11 11:50 | PC.NURSE ---
Patient resting in bed with eyes open, no s/sx of pain or distress noted, patient was able to drink a cup of water, denies n/v, denies wanting crackers, pudding or applesauce at this time, discharge instructions reviewed with patient and friend in the room, patient with c/o right sided pain at lap site, patient states it is sharp, this advertising copywriter looked at patient abd and no signs of bleeding noted, vitals WNL, at times when patient was resting patient heart rate became radha to 49, denies chest tightness or pain, patient given hydrocodone 7.5mg per orders, reviewed with patient splinting to help with pain control, reviewed causes of pain and gas build up, discussed with patient importance of walking to help push gas out, patient and friend verbalize understanding, reviewed infection prevention with patient and reviewed patient pain medication schedule, Patient IV removed and patient wheeled out to private vehicle without complications.
--- NOTE | 2023-06-11 12:00 | ANE.PACU2 ---
Inpatient post-anesthesia follow up: Airway intact: Yes Vital signs: Temperature 97.2 F Pulse Rate 51 Respiratory Rate 17 Blood Pressure 117/78 Pulse Oximetry 98 Oxygen Delivery Me thod Room Air Oxygen Flow Rate Fraction of Inspir ed Oxygen Hydration adequate: Yes Nausea and vomiting: No Pain level: 1 Mental status: Baseline
== END 2023-06-11 12:00 | disposition home or self-care (01) ==
PROVIDERS: PCP Family Medicine; Visit Provider Surgery
PROC: 0FT44ZZ Resection of Gallbladder, Percutaneous Endoscopic Approach (ICD-10-PCS; CPT 47562; principal; 2023-06-11 10:15)
DX: K81.1 Chronic cholecystitis (principal); I10 Essential (primary) hypertension; K76.0 Fatty (change of) liver, not elsewhere classified; F17.200 Nicotine dependence, unspecified, uncomplicated
CPT/HCPCS: 47562; 88304; 93005; J0330; J0690; J1100; J2250; J2371; J2405; J2704; J3010; J3490; J7030

== ENCOUNTER → 2023-07-10 11:42 | Outpatient (BNVA) | payer MEDICAID, SELFPAY | PROVIDERS: Visit Provider Nurse Practitioner Family | DX: M25.572 Pain in left ankle and joints of left foot (principal); M25.571 Pain in right ankle and joints of right foot | CPT/HCPCS: 73610 ==

== ENCOUNTER 2024-01-08 07:09 | Outpatient (CLI) | payer MEDICAID, SELFPAY ==
--- NOTE | 2024-01-08 07:45 | US_ITS ---
WS: [id number] Complete ABDOMINAL ULTRASOUND HISTORY: ELEVATED PANC ENZYMES COMPARISON: 04/05/2023, 04/21/2023 Liver: 15.0 cm in length. Normal size liver. Minimal hepatic steatosis. No mass. Portal Vein: Normal hepatopetal flow with monophasic waveform. Gallbladder: Status post cholecystectomy. CBD: 0.4 cm Pancreas: Completely obscured. Right kidney: 10.4 cm x 5.6 x 5.2 cm. Cortex:1.1 cm. Normal size and echogenicity. No hydronephrosis or mass. Left kidney: 11.2 cm x 5.5 cm x 4.9 cm. Cortex: 1.0 cm. Normal size and echogenicity. No hydronephrosis or mass. Spleen: 12.5 cm. Normal size and echogenicity. Aorta and IVC: Unremarkable abdominal aorta and IVC. US/US abdomen complete* [id number] Impression: 1. Prior cholecystectomy. 2. No hydronephrosis. 3. Completely obscured pancreas by bowel gas.
== END 2024-01-08 07:10 | disposition home or self-care (01) ==
LOC: RAD 07:10
PROVIDERS: PCP Nurse Practitioner Family; Visit Provider Nurse Practitioner Family
DX: R74.8 Abnormal levels of other serum enzymes (principal); R10.9 Unspecified abdominal pain; Z90.49 Acquired absence of other specified parts of digestive tract
CPT/HCPCS: 76700

== ENCOUNTER 2024-01-10 15:08 | Outpatient (CLI) | payer MEDICAID, SELFPAY ==
--- NOTE | 2024-01-10 15:10 | CTR_ITS ---
PROCEDURE INFORMATION: Exam: CT Abdomen And Pelvis With Contrast Exam date and time: 01/10/2024 3:49 PM Age: 48 years old Clinical indication: Abdominal pain; Localized; Left upper quadrant (luq); Prior surgery; prior gallbladder surgery 04/2023; HX of melanoma TECHNIQUE: Imaging protocol: Computed tomography of the abdomen and pelvis with contrast. Radiation optimization: All CT scans at this facility use at least one of these dose optimization techniques: automated exposure control; mA and/or kV adjustment per patient size (includes targeted exams where dose is matched to clinical indication); or iterative reconstruction. Contrast material: OMNI 350; Contrast volume: 100 ml; Contrast route: INTRAVENOUS (IV); COMPARISON: CT abdomen pelvis w con* [id number] 04/21/2023 10:55 AM RADIATION DOSE METRICS: Total DLP (mGy-cm): 529.63 FINDINGS: Liver: Normal. No mass. Gallbladder and biliary ducts: The gallbladder has been removed. Pancreas: Normal. No ductal dilation. Spleen: Normal. No splenomegaly. Adrenal glands: Normal. No mass. Kidneys and ureters: Normal. No hydronephrosis. Stomach and bowel: There is diverticulosis of the colon without evidence of diverticulitis. Appendix: A normal appendix is identified. Intraperitoneal space: Unremarkable. No free air. No significant fluid collection. Vasculature: Unremarkable. No abdominal aortic aneurysm. Lymph nodes: Unremarkable. No enlarged lymph nodes. Urinary bladder: Unremarkable as visualized. Reproductive: Unremarkable as visualized. Bones/joints: Unremarkable. No acute fracture. Soft tissues: Tiny fat containing umbilical hernia. CT/CT abdomen pelvis w con* [id number] IMPRESSION: No acute findings.Non acute findings as described above.
[2024-01-10] MEDS: iohexol 350 mg/mL 500 mL Btl (per mL) IV (15:15)
[2024-01-10] MEDS: iohexol 350 mg/mL 500 mL Btl (per mL) PO (15:16)
== END 2024-01-10 15:09 | disposition home or self-care (01) ==
LOC: RAD 15:09
PROVIDERS: PCP Nurse Practitioner Family; Visit Provider Nurse Practitioner Family
DX: R10.9 Unspecified abdominal pain (principal); K57.90 Diverticulosis of intestine, part unspecified, without perforation or abscess without bleeding; Z90.49 Acquired absence of other specified parts of digestive tract
CPT/HCPCS: 74177

== ENCOUNTER 2024-04-26 00:13 | Emergency (ER) | payer MEDICAID, SELFPAY ==
--- NOTE | 2024-04-26 00:14 | ECG_ITS ---
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
[2024-04-26 00:18] VITALS: BP 111/73; PULSE 41; RESP 18; TEMP 37.1; O2SAT 95; BMI 27.8
[2024-04-26 00:55] LABS: Basophils # 0.1 10^3/uL (0.0-0.1); Basophils % 0.7 %; Eosinophils # 0.2 10^3/uL (0.0-0.8); Eosinophils % 2.4 %; Hematocrit 40.3 % (37-53); Lymphocytes % 22.1 %; Mean Corpuscular HGB Conc 33.5 g/dL (30-55); Mean Corpuscular Volume 86.7 fl (82-101); Mean Platelet Volume 10.4 fL (7.4-10.4); Monocytes # 0.4 10^3/uL (0.2-0.9); Neutrophils # 6.15 10^3/uL (1.8-7.7); Neutrophils % 69.5 %; Nucleated Red Blood Cells % 0 %; Platelet Count 209 10^3/cmm (157-399); Red Blood Count 4.65 10^6/uL (3.85-5.65); Red Cell Distribution Width 12.4 % (12.1-15.1); White Blood Count 8.85 10^3/uL (3.29-11.43)
[2024-04-26] MEDS: ondansetron 2 mg/ML SDV 2 mL 4 MG IVP (00:58)
[2024-04-26] MEDS: morphine 4 mg/mL SDV 1 mL IVP (00:58)
[2024-04-26] MEDS: lidocaine 2% viscous 15 ML, aluminum-mag hydrox-simethicon 30 ML, sucralfate oral liq 1 GM PO (00:59)
[2024-04-26 01:15] LABS: Troponin(5th) Baseline < 6 ng/L (0-15)
[2024-04-26 01:18] LABS: INR 0.93 (0.8-1.2); Partial Thromboplastin Time 24.2 SECONDS (23.9-36.7)
[2024-04-26 01:21] LABS: D Dimer <= 0.27 ug/mLFEU (0-0.59)
[2024-04-26 01:22] LABS: Alanine Aminotransferase 22 U/L (0-41); Albumin Level 4.3 g/dL (3.5-5.2); Alkaline Phosphatase 84 U/L (40-130); Anion Gap 17.1 (5-19); Aspartate Amino Transferase 19 U/L (0-40); Blood Urea Nitrogen 15 mg/dL (6-20); Carbon Dioxide 23 mmol/L (22-29); Chloride 104 mmol/L (98-107); Creatinine Clr Calc Pharmacy 99.0696; Globulin 2.3 g/dL (1.3-4.6); Glomerular Filtration Rate 71.1 mL/min (90-130); Glucose 138 mg/dL (65-115); NT Pro B Type Natriuretic Pept 51 pg/mL (0-125); Osmolality Calculated 293 mOsm/kg (285-295); Potassium 4.1 mmol/L (3.5-5.1); Sodium 140 mmol/L (136-145); Total Bilirubin 0.8 mg/dL (0.15-1.2); Total Protein 6.6 g/dL (6.6-8.7)
--- NOTE | 2024-04-26 01:47 | CTR_ITS ---
PROCEDURE INFORMATION: Exam: CT Abdomen And Pelvis With Contrast Exam date and time: 04/26/2024 2:05 AM Age: 48 years old Clinical indication: Bloating; Abdominal pain; Prior surgery; Surgery date: 6+ months; Surgery type: Gb; C/O epigastric pain with abd distention TECHNIQUE: Imaging protocol: Computed tomography of the abdomen and pelvis with contrast. Radiation optimization: All CT scans at this facility use at least one of these dose optimization techniques: automated exposure control; mA and/or kV adjustment per patient size (includes targeted exams where dose is matched to clinical indication); or iterative reconstruction. Contrast material: OMNI 350; Contrast volume: 100 ml; Contrast route: INTRAVENOUS (IV); COMPARISON: CT abdomen pelvis w con* [id number] 01/10/2024 3:49 PM RADIATION DOSE METRICS: Total DLP (mGy-cm): 840.66 FINDINGS: Liver: Normal. No mass. Gallbladder and biliary ducts: The gallbladder is surgically absent. Pancreas: Normal. No ductal dilation. Spleen: Normal. No splenomegaly. Adrenal glands: Normal. No mass. Kidneys and ureters: Normal. No hydronephrosis. Stomach and bowel: Scattered colon diverticula. No inflammatory change identified involving the GI tract. No signs of bowel obstruction. Appendix: The appendix is normal. Intraperitoneal space: Unremarkable. No free air. No significant fluid collection. Vasculature: Unremarkable. No abdominal aortic aneurysm. Lymph nodes: Unremarkable. No enlarged lymph nodes. Urinary bladder: Unremarkable as visualized. Reproductive: Unremarkable as visualized. Bones/joints: Unremarkable. No acute fracture. Soft tissues: Unremarkable. CT/CT abdomen pelvis w con* [id number] IMPRESSION: No acute abnormality.
[2024-04-26] MEDS: fentaNYL 50 mcg/mL INJ 2mL 100 MCG IVP (01:59)
[2024-04-26] MEDS: haloperidol inj 5 mg/mL INJ 1 mL 3 MG IVP (01:59)
--- NOTE | 2024-04-26 02:04 | W.ED.CHESTPA ---
HPI - Chest Pain General: Chief Complaint: Chest Pain Stated Complaint: CHEST PAIN Time Seen by Provider: 04/26/24 00:18 History of Present Illness: 48-year-old male with no history of cardiac disease. He tells me does have a history of cholecystectomy. He presents with epigastric and chest pain. This started at home at rest. He attempted to drive to the hospital, but had to meat puller because the pain was so intense. He arrives by EMS. He continues to complain of intermittent abdominal and chest pain, which is improved from prior currently. He states that he vomited some blood earlier at home. He denies significant cough or shortness of breath. He was evidently seen a few days ago at an outside facility in emergency room for similar symptoms. He says that symptoms were not this bad at the time. Related Data Previous Rx's ?Medication ?Instructions ?Recorded diclofenac sodium 75 mg 75 mg PO BID PRN pain #60 tabs 07/10/23 tablet,delayed release lansoprazole 30 mg capsule,delayed 30 mg PO DAILY #30 caps 04/26/24 release (Prevacid) lorazepam 1 mg tablet 1 mg PO BID PRN anxiety #10 tabs 04/26/24 Allergies Allergy/AdvReac Type Severity Reaction Status Date / Time No Known Allergies Allergy Verified 06/24/23 08:51 [facility] ED PFSH: Medical History Left ankle pain Family history of pancreatic cancer Metastatic malignant melanoma Melanoma Fatty liver Surgical History Hx laparoscopic cholecystectomy 06/11/23 Dr Wade History of colonoscopy 05/08 History of esophagogastroduodenoscopy (EGD) 05/08 Family History Sister Cancer pancreatic cancer Other Diabetes Denies family history of CAD (coronary artery disease) Anesthesia complication Bleeding disorder Social History Smoking and tobacco/nicotine status: current every day tobacco/nicotine user smokeless tobacco Second hand smoke exposure: No Alcohol intake: never Substance/Drug Use: never Adopted: No Caregiver/support person: No Lives independently: Yes service: No Current occupational status: employed Current occupational exposures/hazards: No Do you think of yourself as: Straight/Heterosexual Current gender identity: Male Physical Exam Const: COMMON NORMALS: no acute distress GENERAL APPEARANCE: cooperative; not ill appearing and not frail appearing HENMT: COMMON NORMALS: normocephalic, atraumatic and Normal external nose present HEAD & SCALP: normocephalic and atraumatic FACE & SINUS: normal facial exam and face symmetric NOSE: Normal external nose present Eye: COMMON NORMALS: Equal, round and reactive pupils present and EOMs intact bilaterally PUPIL: Yes Equal, round and reactive pupils present Neck/C-Spine: GENERAL: Yes trachea midline Chest: CHEST: Yes Symmetrical chest wall rise Resp: COMMON NORMALS: normal respiratory effort, No retractions, No use of accessory muscles and clear to auscultation bilaterally AUSCULTATION: clear to auscultation bilaterally Cardio: COMMON NORMALS: regular rate and regular rhythm RATE: regular rate RHYTHM: regular rhythm GI: COMMON NORMALS: Normal to inspection, nondistended, normoactive bowel sounds present Extremity: COMMON NORMALS: no pedal edema Neuro: VANGIE COMA SCALE: document GCS findings [place] coma scale eye opening: Spontaneous Vangie coma scale verbal response: Orientated Vangie coma scale motor response: Obey commands Vangie coma scale total score: 15 SENSORY EXAM: Yes extremities (intact) Psych: COMMON NORMALS: speech normal SPEECH: Yes normal speech Skin: COMMON NORMALS: no rashes or lesions noted GENERAL SKIN EXAM: no rashes or lesions noted Course Vital Signs: Vital signs: Vital Signs Temperature 98.7 F 04/26/24 00:18 Pulse Rate 45 L 04/26/24 03:56 Respiratory Rate 18 04/26/24 03:56 Blood Pressure 109/76 04/26/24 03:56 Pulse Oximetry 97 04/26/24 03:56 Oxygen Delivery Me thod Room Air 04/26/24 00:18 MDM - Chest Pain Medical Decision Making This patient appears to be in significant pain intermittently. It seems to come and go. His vitals have been stable here, however his heart rate has been in the 40s. Sinus. He is normotensive despite this. It does appear he was recently placed on nebivolol, which could be contributing. CBC is normal. Blood sugar is 138, otherwise BMP is normal. His troponin is nondetectable, and remains so at 2 hours. Lipase is 31. Liver enzymes are normal. His CT of the abdomen pelvisIs negative as well. D-dimer is nondetectable. Patient seems to respond well to Ativan. This is likely anxiety driven. He evidently had a negative workup of separate facility few days prior. He will return for worsening symptoms despite treatment. Lab Data 04/26/24 00:50 04/26/24 00:50 Radiology Impressions Abdomen/Pelvis CT 04/26/24 01:47 IMPRESSION: No acute abnormality. Laboratory Results WBC 8.85 10^3/uL (3.29-11.43) 04/26/24 00:50 RBC 4.65 10^6/uL (3.85-5.65) 04/26/24 00:50 Hgb 13.50 g/dL (11.27-16.99) 04/26/24 00:50 Hct 40.3 % (37-53) 04/26/24 00:50 MCV 86.7 fl (82-101) 04/26/24 00:50 MCH 29.0 pg (27-33) 04/26/24 00:50 MCHC 33.5 g/dL (30-55) 04/26/24 00:50 RDW 12.4 % (12.1-15.1) 04/26/24 00:50 Plt Count 209 10^3/cmm (157-399) 04/26/24 00:50 MPV 10.4 fL (7.4-10.4) 04/26/24 00:50 Neut % (Auto) 69.5 % 04/26/24 00:50 Lymph % (Auto) 22.1 % 04/26/24 00:50 Tw[place]gs % (Auto) 5.0 % 04/26/24 00:50 Eos % (Auto) 2.4 % 04/26/24 00:50 Baso % (Auto) 0.7 % 04/26/24 00:50 Neut # (Auto) 6.15 10^3/uL (1.8-7.7) 04/26/24 00:50 Lymph # (Auto) 2.0 10^3/uL (0.8-4.8) 04/26/24 00:50 Tw[place]gs # (Auto) 0.4 10^3/uL (0.2-0.9) 04/26/24 00:50 Eos # (Auto) 0.2 10^3/uL (0.0-0.8) 04/26/24 00:50 Baso # (Auto) 0.1 10^3/uL (0.0-0.1) 04/26/24 00:50 Nucleated RBC % (auto) 0 % 04/26/24 00:50 Nucleated RBCs # 0.0 /100WBC 04/26/24 00:50 PT 13.10 SECONDS (12.1-14.9) 04/26/24 00:50 INR 0.93 (0.8-1.2) 04/26/24 00:50 APTT 24.2 SECONDS (23.9-36.7) 04/26/24 00:50 D-Dimer <= 0.27 ug/mLFEU (0-0.59) 04/26/24 00:50 Sodium 140 mmol/L (136-145) 04/26/24 00:50 Potassium 4.1 mmol/L (3.5-5.1) 04/26/24 00:50 Chloride 104 mmol/L (98-107) 04/26/24 00:50 Carbon Dioxide 23 mmol/L (22-29) 04/26/24 00:50 Anion Gap 17.1 (5-19) 04/26/24 00:50 BUN 15 mg/dL (6-20) 04/26/24 00:50 Creatinine 1.1 mg/dL (0.7-1.2) 04/26/24 00:50 GFR Calculation 71.1 mL/min (90-130) L 04/26/24 00:50 Glucose 138 mg/dL (65-115) H 04/26/24 00:50 Calculated Osmolality 293 mOsm/kg (285-295) 04/26/24 00:50 Calcium 9.0 mg/dL (8.5-10.5) 04/26/24 00:50 Total Bilirubin 0.8 mg/dL (0.15-1.2) 04/26/24 00:50 AST 19 U/L (0-40) 04/26/24 00:50 ALT 22 U/L (0-41) 04/26/24 00:50 Alkaline Phosphatase 84 U/L (40-130) 04/26/24 00:50 Troponin T Baseline < 6 ng/L (0-15) 04/26/24 00:50 Troponin T 120 Minute 6.00 ng/L (0-15) 04/26/24 02:50 Delta Troponin T 0.84882 ABS# (0-10) 04/26/24 02:50 NT-Pro-B Natriuret Pep 51 pg/mL (0-125) 04/26/24 00:50 Total Protein 6.6 g/dL (6.6-8.7) 04/26/24 00:50 Albumin 4.3 g/dL (3.5-5.2) 04/26/24 00:50 Globulin 2.3 g/dL (1.3-4.6) 04/26/24 00:50 Lipase 31 U/L (13-60) 04/26/24 00:50 All radiology interpretation(s) finalized by discharge Discharge Plan Discharge Patient Disposition: Home Clinical Impression: Bradycardia Chest pain Qualifiers: Chest pain type: unspecified Qualified Code(s): R07.9 - Chest pain, unspecified Condition: Stable Prescriptions: New lansoprazole [Prevacid] 30 mg capsule,delayed release(DR/EC) 30 mg PO DAILY Qty: 30 0RF lorazepam 1 mg tablet 1 mg PO BID PRN (Reason: anxiety) Qty: 10 0RF No Action diclofenac sodium 75 mg tablet,delayed release (DR/EC) 75 mg PO BID PRN (Reason: pain) Qty: 60 0RF Rx Instructions: no nsaids with this Discharge Orders: Discharge ED (Routine); Ordered 04/26/24 Ordered By: Doug Newberry Referrals: Loki Freeman MD [Primary Care Provider] - 4-7 days Patient Instructions: Chest Pain (ED), Bradycardia (ED), Opioid Safety, Pain Management Activity Restrictions/Additional Instructions: Discontinue the use of nebivolol, as it can lower your heart rate, which is already low. You may take medication as needed for anxiety. Call your doctor Saturday for follow-up appointment. More outpatient tests may be needed. Return for any problems. Print Language: [place]guill[place] Coding Level of Care Code ED Rubber Calender Helper for Saroj Gorman
[2024-04-26] MEDS: iohexol 350 mg/mL 500 mL Btl (per mL) IV (02:08)
[2024-04-26 02:19] VITALS: BP 145/92; PULSE 45; RESP 18; O2SAT 93
[2024-04-26 02:32] LABS: Lipase 31 U/L (13-60)
[2024-04-26] MEDS: ketorolac 30 mg/mL INJ IVP (02:47)
[2024-04-26] MEDS: LORazepam 2 mg/mL INJ 1 mL 1 MG IVP (02:47)
[2024-04-26 03:13] LABS: Troponin 5 2HR Delta 0.00001 ABS# (0-10)
[2024-04-26 03:56] VITALS: BP 109/76; PULSE 45; RESP 18; O2SAT 97
== END 2024-04-26 03:57 | disposition home or self-care (01) ==
PROVIDERS: Emergency Provider Emergency Medicine; PCP Internal Medicine
DX: R00.1 Bradycardia, unspecified (principal); R07.9 Chest pain, unspecified; F17.290 Nicotine dependence, other tobacco product, uncomplicated
CPT/HCPCS: 36415; 74177; 80053; 83690; 83880; 84484; 85025; 85378; 85610; 85730; 93005; 96374; 96375; 99285; J1630; J1885; J2060; J2270; J2405; J3010